=== PATIENT | female | born 1990 | race Caucasian/White ===

== ENCOUNTER 2021-10-30 10:22 | Inpatient (IN) | payer MEDICAID ==
[~2021-10-30] VITALS: Ht 157.5 cm; Wt 94.3 kg
[2021-10-30] MEDS ORDERED: OXYTOCIN 10 UNITS/ML VIAL IM SCH (10:45)
[2021-10-30] MEDS ORDERED: CARBOPROST 250 MCG/ML AMP IM PRN (10:45)
[2021-10-30] MEDS ORDERED: LACTATED RINGERS 1,000 ML IV SCH (10:45)
[2021-10-30] MEDS ORDERED: LACTATED RINGERS 500 ML IV ONE (10:45)
[2021-10-30] MEDS ORDERED: METHYLERGONOVINE 0.2 MG/ML AMP IM PRN ×2 (10:45→14:25)
[2021-10-30] MEDS ORDERED: AMPICILLIN 2,000 MG in NACL 0.9% MINI-BAG PLUS 100 ML IV SCH (10:45)
[2021-10-30 11:18] LABS: BASOPHILS # (AUTO) 0.1 K/uL (0.00-0.22); BASOPHILS % (AUTO) 0.8 % (0.0-2.0); EOSINOPHILS # (AUTO) 0.1 K/uL (0-0.4); EOSINOPHILS % (AUTO) 0.5 % (0.0-4.0); HEMATOCRIT 39.3 % (36-48); HEMOGLOBIN 12.9 g/dL (12.0-16.0); LYMPHOCYTES # (AUTO) 2.2 K/uL (2.5-16.5); LYMPHOCYTES % (AUTO) 19.8 % (20.5-51.1); MEAN CORPUSCULAR HEMOGLOBIN 28 pg (27-31); MEAN CORPUSCULAR HGB CONC 33 g/dL (33-37); MEAN CORPUSCULAR VOLUME 83.7 fL (80-94); MONOCYTES # (AUTO) 0.6 K/uL (0.8-1.0); NEUTROPHILS # (AUTO) 8.2 K/uL (1.8-7.7); NEUTROPHILS % (AUTO) 73.9 % (42.2-75.2); PLATELET COUNT (AUTO) 311 K/uL (140-450); RED BLOOD CELL COUNT(AUTO) 4.69 MIL/uL (4.20-5.40); RED CELL DISTRIBUTION WIDTH 15.3 % (11.6-13.7); WHITE BLOOD COUNT (AUTO) 11.1 K/uL (4.8-10.8)
[2021-10-30 11:23] VITALS: BP 109/63
[2021-10-30] MEDS ORDERED: TERBUTALINE 1 MG/ML VIAL SUBQ SCH (11:30)
[2021-10-30] MEDS ORDERED: TERBUTALINE 1 MG/ML VIAL SUBQ ONE (11:30)
[2021-10-30] MEDS ORDERED: CITRIC ACID/SODIUM CITRATE 30 ML UDC PO SCH (11:45)
[2021-10-30 11:46] LABS: ALBUMIN 2.3 g/dL (3.4-5.0); ANION GAP 13.3 (8-16); CARBON DIOXIDE 26.1 mmol/L (21-32); CREATININE 0.4 mg/dL (0.6-1.3); POTASSIUM 4.4 mmol/L (3.5-5.1); TOTAL BILIRUBIN 0.4 mg/dL (0.0-1.0)
[2021-10-30] MEDS: LACTATED RINGERS 1,000 ML IV SCH ×2 (11:50→13:10)
[2021-10-30] MEDS ORDERED: AMPICILLIN 1,000 MG in NACL 0.9% MINI-BAG PLUS 50 ML IV SCH (12:00)
--- NOTE | 2021-10-30 14:03 | NUR ---
PATIENT HAS BEEN SCREENED AND CATEGORIZED LOW NUTRITION RISK. PATIENT WILL BE SEEN WITHIN 7 DAYS OF ADMISSION. 11/05/[address]
[2021-10-30] MEDS ORDERED: MORPHINE PRES FREE 10 MG/10 ML AMP IV ONE (14:05)
[2021-10-30] MEDS ORDERED: oxyCODONE/APAP 5/325 MG 1 TAB TAB PO PRN (14:25)
[2021-10-30] MEDS ORDERED: MEASLES, MUMPS, AND RUBELLA 1 VIAL SQVAC PRN ×2 (14:25→14:30)
[2021-10-30] MEDS ORDERED: TEMAZEPAM 15 MG CAP PO PRN (14:25)
[2021-10-30] MEDS ORDERED: OXYTOCIN 20 UNITS in LACTATED RINGERS 1,000 ML IV SCH (14:25)
[2021-10-30] MEDS ORDERED: IBUPROFEN 800 MG TAB PO PRN (14:25)
[2021-10-30] MEDS ORDERED: MAGNESIUM CITRATE 300 ML BTL PO SCH (14:25)
[2021-10-30] MEDS ORDERED: KETOROLAC 30 MG/ML VIAL IVP PRN (14:25)
[2021-10-30] MEDS ORDERED: OXYTOCIN 20 UNITS/LR PREMIX 1,000 ML IV ONE ×2 (15:04→23:56)
[2021-10-30] MEDS ORDERED: ONDANSETRON 4 MG/2 ML VIAL ONE (16:11)
[2021-10-30 16:44] LABS: BILIRUBIN,URINE NEGATIVE (NEGATIVE); BLOOD, URINE 1+ (NEGATIVE); COLOR,URINE YELLOW (YELLOW); LEUKOCYTE ESTERASE ,URINE 1+ (NEGATIVE); NITRITE, URINE NEGATIVE (NEGATIVE); PH,URINE 5.5 (5.0-9.0); UGLUCOSE NEGATIVE (NEGATIVE)
[2021-10-30 16:47] LABS: APPEARANCE,URINE HAZY (CLEAR)
[2021-10-30 17:23] LABS: RBC,URINE 0-5 /HPF (0-5); WBC,URINE 0-5 /HPF (0-5)
[2021-10-30] MEDS: DOCUSATE SOD/SENNA 50/8.6 MG 1 TAB PO SCH (21:00)
[2021-10-31] MEDS: OXYTOCIN 20 UNITS in LACTATED RINGERS 1,000 ML IV SCH ×2 (00:02→08:19)
[2021-10-31] MEDS ORDERED: KETOROLAC 60 MG/2 ML VIAL IM PRN (00:05)
[2021-10-31] MEDS ORDERED: NALOXONE 0.4 MG/ML VIAL IVP PRN (00:05)
[2021-10-31] MEDS ORDERED: diphenhydrAMINE 50 MG/ML VIAL IVP PRN (00:05)
[2021-10-31] MEDS ORDERED: ONDANSETRON 4 MG/2 ML VIAL IVP PRN (00:05)
[2021-10-31 07:28] LABS: EOSINOPHILS % (AUTO) 0.1 % (0.0-4.0); HEMATOCRIT 34.2 % (36-48); HEMOGLOBIN 11.2 g/dL (12.0-16.0); LYMPHOCYTES # (AUTO) 1.9 K/uL (2.5-16.5); LYMPHOCYTES % (AUTO) 12.6 % (20.5-51.1); MEAN CORPUSCULAR HEMOGLOBIN 27 pg (27-31); MEAN CORPUSCULAR HGB CONC 33 g/dL (33-37); MEAN CORPUSCULAR VOLUME 83.8 fL (80-94); MONOCYTES # (AUTO) 0.7 K/uL (0.8-1.0); MONOCYTES % (AUTO) 4.7 % (1.7-9.3); NEUTROPHILS # (AUTO) 12.1 K/uL (1.8-7.7); NEUTROPHILS % (AUTO) 82.6 % (42.2-75.2); PLATELET COUNT (AUTO) 288 K/uL (140-450); RED BLOOD CELL COUNT(AUTO) 4.08 MIL/uL (4.20-5.40); RED CELL DISTRIBUTION WIDTH 15.5 % (11.6-13.7); WHITE BLOOD COUNT (AUTO) 14.7 K/uL (4.8-10.8)
[2021-10-31] MEDS ORDERED: OXYTOCIN 20 UNITS/LR PREMIX 1,000 ML IV ONE (07:35)
[2021-10-31] MEDS: SIMETHICONE 80 MG TAB.CHEW PO PRN ×2 (09:03→12:54)
[2021-10-31] MEDS: oxyCODONE/APAP 5/325 MG 1 TAB TAB PO PRN (19:57)
[2021-10-31] MEDS: DOCUSATE SOD/SENNA 50/8.6 MG 1 TAB PO SCH (21:05)
[2021-11-01] MEDS: oxyCODONE/APAP 5/325 MG 1 TAB TAB PO PRN ×2 (04:04→12:22)
[2021-11-01] MEDS: SIMETHICONE 80 MG TAB.CHEW PO PRN (09:37)
== END 2021-11-01 15:30 | disposition home or self-care (01) | DRG 540 ==
LOC: UNDOADMOB 10:22 → OBSVTOIN 10:22 → INTOOBSV 10:22 → MLD 10:22 → OBSVTOIN 11:43 → MLD 11:43 → MFCC 16:28
PROVIDERS: ADMIT Obstetrics & Gynecology; ATTEND Obstetrics & Gynecology
PROC: 10D00Z1 Extraction of Products of Conception, Low, Open Approach (ICD-10-PCS; principal; 2021-10-30 13:00)
DX: O34.211 Maternal care for low transverse scar from previous cesarean delivery (principal); O42.92 Full-term premature rupture of membranes, unspecified as to length of time between rupture and onset of labor; Z37.0 Single live birth; O77.0 Labor and delivery complicated by meconium in amniotic fluid; Z3A.37 37 weeks gestation of pregnancy
CPT/HCPCS: 36415; 80053; 81001; 85025; 85730; 86592; 86886; 86900; 86901; 87086; 90715; J0690; J2270; J2405; J2590; J3105; J7060; J7120